=== PATIENT | female | born 1945 | race Caucasian/White ===

== ENCOUNTER 2019-02-17 13:14 | Inpatient (IN) | payer MEDICARE, OTHER ==
[~2019-02-17] VITALS: Ht 162.6 cm; Wt 63.9 kg
[2019-02-17 15:07] LABS: BASO % 0.3 % (0.0-1.0); EOS # 0.3 10^3/uL (0.0-0.50); EOS % 3.4 % (0.0-3.0); HEMATOCRIT 26.8 % (36.0-47.0); LYMPH # 1.9 10^3/uL (1.5-4.5); LYMPH % 25.2 % (24.0-44.0); MEAN CORPUSCULAR HGB CONC 33.6 g/dl (32.0-36.5); MEAN CORPUSCULAR VOLUME 95.4 fl (80.0-96.0); MONO # 0.7 10^3/uL (0.0-0.8); MONO % 9.4 % (0.0-5.0); NEUTROPHILS # 4.7 10^3/uL (1.8-7.7); NEUTROPHILS % 61.4 % (36.0-66.0); PLATELET COUNT, AUTOMATED 127 10^3/uL (150-450); RED BLOOD COUNT 2.81 10^6/uL (4.00-5.40); WHITE BLOOD COUNT 7.6 10^3/uL (4.0-10.0)
[2019-02-17 15:57] LABS: ALBUMIN 2.8 GM/DL (3.2-5.2); ALT/SGPT 28 U/L (12-78); BILIRUBIN,DIRECT < 0.1 MG/DL (0.0-0.2); BILIRUBIN,TOTAL 0.3 MG/DL (0.2-1.0); BLOOD UREA NITROGEN 11 MG/DL (7-18); CARBON DIOXIDE LEVEL 27 MEQ/L (21-32); CHLORIDE LEVEL 107 MEQ/L (98-107); CPK CREATINE PHOSPHOKINASE 254 U/L (26-192); CREATININE FOR GFR 0.82 MG/DL (0.55-1.30); GLOMERULAR FILTRATION RATE > 60.0 (>39); GLUCOSE, FASTING 132 MG/DL (70-100); POTASSIUM SERUM 3.3 MEQ/L (3.5-5.1); SODIUM LEVEL 141 MEQ/L (136-145); TOTAL PROTEIN 6.1 GM/DL (6.4-8.2); TROPONIN I 5.36 NG/ML (< 0.10)
--- NOTE | 2019-02-17 16:23 | REP ---
CT Head without contrast HISTORY: Infarction COMPARISON: None Areas of decreased attenuation are present in the periventricular white matter. This represents small-vessel ischemic disease. There is no intraparenchymal hemorrhage, acute infarct, mass or midline shift. The ventricular system and cortical sulci are dilated consistent with minimal volume loss. There is no extra cerebral collection. There is no fracture. The visualized sinuses are clear. IMPRESSION: 1. Small vessel ischemic disease. 2. Minimal volume loss. Electronically Signed by Yung Castro MD 02/17/2019 04:15 P
[2019-02-17] MEDS ORDERED: ASPI81TA85 PO (17:16)
[2019-02-17] MEDS ORDERED: NITR0.4S14 SL (17:16)
[2019-02-17] MEDS ORDERED: LISI10TA4 PO (17:16)
[2019-02-17] MEDS ORDERED: ATOR40TA75 PO (17:16)
[2019-02-17] MEDS ORDERED: EFFI10TA4 PO (17:16)
[2019-02-17] MEDS ORDERED: PANT40TA3 PO (17:16)
[2019-02-17] MEDS ORDERED: METO25TA4 PO (17:16)
[2019-02-17] MEDS ORDERED: PREM0.45 PO (17:16)
[2019-02-17] MEDS ORDERED: PROHANCE 279.3MG/ML 5ML VIAL (A9576) As Ordered ONE (17:38)
[2019-02-17] MEDS ORDERED: PROHANCE 279.3MG/ML 15ML VIAL (A9576) As Ordered ONE (17:38)
[2019-02-17] MEDS ORDERED: ACET-683 PO (19:39)
[2019-02-17] MEDS ORDERED: ESTR1CAP2 PO (19:43)
--- NOTE | 2019-02-17 21:26 | REPVR ---
EXAM: MR Angiography Neck Without and With Contrast EXAM DATE/TIME: 02/17/2019 7:48 PM CLINICAL HISTORY: 73 years old, female; Signs and symptoms; Headache and visual disturbance; Transient visual loss; Additional info: TIA TECHNIQUE: Imaging protocol: Magnetic resonance angiography images of the neck without and with intravenous contrast. 3D rendering: MIP reconstructed images were created and reviewed. Contrast material: PROHANCE; Contrast volume: 25 ml; Contrast route: IV; COMPARISON: No relevant prior studies available. FINDINGS: Right common carotid artery: Normal. No stenosis. No dissection or occlusion. Right internal carotid artery: Normal. Extracranial segment is patent with no stenosis. No dissection or occlusion. Right external carotid artery: Normal. No stenosis. No dissection or occlusion. Right vertebral artery: Normal. No stenosis. No dissection or occlusion. Left common carotid artery: Normal. No stenosis. No dissection or occlusion. Left internal carotid artery: Normal. Extracranial segment is patent with no stenosis. No dissection or occlusion. Left external carotid artery: Normal. No stenosis. No dissection or occlusion. Left vertebral artery: Normal. No stenosis. No dissection or occlusion. IMPRESSION: No carotid or vertebral artery stenosis. COMMENT: Reference per NASCET criteria for degree of stenosis: Mild: less than 50% stenosis. Moderate: 50-69% stenosis. Severe: 70-94% stenosis. Near occlusion: 95-99% stenosis. Electronically signed by: Brian Woods On 02/17/2019 21:26:19 PM
--- NOTE | 2019-02-17 21:31 | REPVR ---
EXAM: MR Head Without Contrast EXAM DATE/TIME: 02/17/2019 7:48 PM CLINICAL HISTORY: 73 years old, female; Signs and symptoms; Visual disturbance; Additional info: TIA TECHNIQUE: Imaging protocol: MR of the head without contrast. COMPARISON: CT Head without contrast 02/17/2019 3:50 PM FINDINGS: Brain: There is hyperintense signal in the care of your white matter with multiple additional small hyperintense foci scattered throughout the white matter. This is consistent with chronic microvascular disease. DWI images demonstrate several acute infarcts. The largest is in the right cerebellar hemisphere measuring 13 mm. There are small acute left cerebellar infarct measuring 5 and 3 mm. There is a 4 mm right occipital infarct. There is a 5 mm left basal ganglia infarct. There is a 4 mm left frontal white matter infarct and a 3 mm right frontal infarct. These are acute infarcts as confirmed on ADC. Gradient echo images demonstrate no evidence of hemorrhage. There is no extra-axial collection. There is no mass. There are no abnormal flow voids. Ventricles: Normal. No ventriculomegaly. Bones/joints: Unremarkable. Soft tissues: Normal. Sinuses: Normal as visualized. No acute sinusitis. Mastoid air cells: Normal as visualized. No mastoid effusion. Orbits: Unremarkable. IMPRESSION: There is a 13 mm acute right cerebellar hemisphere infarct. 6 additional small, 3-6 mm, cerebellar and cerebral acute infarcts as detailed above. This could indicate emboli. It may be secondary to an episode of hypotension or hypoxia. Electronically signed by: Brian Woods On 02/17/2019 21:31:36 PM
--- NOTE | 2019-02-17 21:31 | REPVR ---
EXAM: MR Angiogram Head Without Contrast, Arteries EXAM DATE/TIME: 02/17/2019 7:48 PM CLINICAL HISTORY: 73 years old, female; Signs and symptoms; Headache and visual disturbance; Transient visual loss; Additional info: TIA TECHNIQUE: Imaging protocol: MR angiogram head without contrast. Exam focused on the arteries. COMPARISON: CT Head without contrast 02/17/2019 3:50 PM FINDINGS: Right internal carotid artery: As seen on series 804 image 16, probable small, less than 2 mm, aneurysm of the cavernous segment of the right internal carotid artery. No stenosis. No supraclinoid aneurysm. Right anterior cerebral artery: Unremarkable. No occlusion or significant stenosis. No aneurysm. Right middle cerebral artery: Unremarkable. No occlusion or significant stenosis. No aneurysm. Right posterior cerebral artery: Unremarkable. No occlusion or significant stenosis. No aneurysm. Right vertebral artery: Unremarkable. No occlusion or significant stenosis. No aneurysm. Left internal carotid artery: As seen on series 803 image 15, small, 2 mm, posteriorly oriented aneurysm of the proximal cavernous segment of the left internal carotid artery. No stenosis. No supraclinoid aneurysm. Left anterior cerebral artery: Unremarkable. No occlusion or significant stenosis. No aneurysm. Left middle cerebral artery: Unremarkable. No occlusion or significant stenosis. No aneurysm. Left posterior cerebral artery: Unremarkable. No occlusion or significant stenosis. No aneurysm. Left vertebral artery: Unremarkable. No occlusion or significant stenosis. No aneurysm. Basilar artery: Unremarkable. No occlusion or significant stenosis. No aneurysm. IMPRESSION: 1. No intracranial stenosis or occlusion. 2. 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 No supraclinoid aneurysm. Electronically signed by: Brian Woods On 02/17/2019 21:31:06 PM
[2019-02-17] MEDS ORDERED: ACETAMINOPHEN TAB 650MG DOSE (2X325MG) PO ONE (22:00)
[2019-02-17 23:07] LABS: MB/CK RELATIVE INDEX 3.85 (< OR =4); TROPONIN I 5.33 NG/ML (< 0.10)
[2019-02-18] MEDS ORDERED: NITROGLYCERIN 0.4 MG SUBL TABLET SL PRN (00:15)
[2019-02-18] MEDS ORDERED: ACETAMINOPHEN 500 MG TAB PO PRN (00:15)
[2019-02-18 00:49] LABS: C REACTIVE PROTEIN QUANTITATIV 1.43 MG/DL (0.00-0.30)
[2019-02-18] MEDS: ATORVASTATIN 20 MG TAB PO SCH ×2 (01:14→21:48)
[2019-02-18] MEDS: METOPROLOL TART 12.5 MG PER 1/2 TAB PO SCH ×3 (01:15→21:50)
[2019-02-18 01:21] LABS: INR 1.01; PROTHROMBIN TIME 13.4 SECONDS (12.1-14.4)
[2019-02-18 01:22] LABS: PARTIAL THROMBOPLASTIN TIME 30.9 SECONDS (25.4-37.6)
[2019-02-18 01:25] VITALS: BP 174/79
[2019-02-18] MEDS: NS 1,000 ML IV SCH ×2 (03:00→13:35)
[2019-02-18] MEDS ORDERED: POTASSIUM CHLORIDE 10 MEQ SR TABLET PO ONE (04:00)
--- NOTE | 2019-02-18 04:03 | HPEPDOC ---
General Date of Admission February 17, 2019 at 22:40 Date of Service: February 18, 2019 Attending Physician: SAW PETERS MD Chief Complaint The patient is a 73-year-old female admitted with a reason for visit of Embolic Cerebral Infarction. Source: Patient, Family, Old records Exam Limitations: Clinical conditions History of Present Illness Ms. Gallego is a 73-year-old female who presents to [facility] Emergency Department with visual disturbance. Patient is accompanied by her and daughter. Patient states that she had been driving as a passenger in the vehicle with her this morning at 10AM to attend his cardiology appointment when she developed difficulties seeing out her right eye. She states that she was having some abnormal visual movements in her right sided peripheral vision and then completely lost vision in her right eye. She also developed difficulty understanding what people were saying to her and difficulty in articulating herself. Patient states that she does have a history of visual disturbance which is usually accompanied by an intense migraine headache; however, this visual disturbance was not accompanied by a headache. Family state that they did not notice facial asymmetry and her daughter had her extend her arms out in front of her and did not notice any abnormalities. The patient herself does not describe any lateralizing weakness and has not fallen. She does, however, describe feeling hopeless. Her daughter checked her blood pressure when she got home and it was initially 118/60s with it decreasing to 105/56. By noon, patient states that her visual loss had completely resolved. She reports having a sore throat overnight and having previously had a cough. She describes diffuse body aches, but attributes that to being on the ED stretcher for many hours today. Further admits to elbow pain, but no other joint pain. No fevers, night sweats, or chills. No chest pain or shortness of breath. Of note, patient experienced an acute inferiolateral STEMI on 01/18/2019. She was evaluated at [facility]. She received 2 drug-eluting stents in the right coronary artery, 2 drug-eluting stents in the left circumflex artery, and stenting of the left main artery. 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 Patient was started on ASA, Atorvastatin, Prasugrel, Lisinopril, Metoprolol, Nitroglycerin, and Pantoprazole. Patient presented to [facility] ED on 01/21/2019 for right sided headache with a "fluttering" in her right eye. A head CT was ordered and did not reveal any abnormalities. It was recommended that patient follow up with her primary care provider. Patient had a follow up appointment on 01/25/2019 with her snowboard designer in [place]. A follow cardiac catheterization was scheduled for a week following her appointment, but was cancelled. It was rescheduled and she underwent a cardiac catheterization on 02/15/2019 via her right femoral vein. No abnormalities noted, per patient. However, she developed crushing chest pain and another cardiac catheterization was performed via her left femoral vein. Five additional stents were placed at that time. Patient established with her primary care provider, Dr. Yung Whelan, on 02/07/2019. In that encounter note it states that patient had presented to the [facility] the week before for a productive cough and was prescribed Cefdinir for bronchitis. Follow up appointment scheduled for 02/28/2019. Emergency Department evaluation obtained imaging, including a head CT which was unremarkable, carotid MRI and brain MRA which were unremarkable; however, the brain MRI revealed several acute infarctions, the largest is in the right cerebellar hemisphere measuring 13 mm. There are small acute left cerebellar infarct measuring 5 and 3 mm. There is a 4 mm right occipital infarct. There is a 5 mm left basal ganglia infarct. There is a 4 mm left frontal white matter infarct and a 3 mm right frontal infarct. Laboratory evaluation revealed the following: K 3.3, lactic acid 1.4, and a troponin 5.36. Hospitalist service was consulted and patient was admitted for further medical management. Home Medications Scheduled Aspirin (Aspir 81) 81 Mg Tablet.dr, 81 MG PO DAILY, (Reported) Atorvastatin Calcium (Atorvastatin Calcium) 40 Mg Tablet, 40 MG PO QHS, (Reported) Lisinopril (Lisinopril) 10 Mg Tablet, 10 MG PO DAILY, (Reported) Metoprolol Tartrate (Metoprolol Tartrate) 25 Mg Tablet, 12.5 MG PO BID, (Reported) Pantoprazole Sodium (Pantoprazole Sodium) 40 Mg Tablet.dr, 40 MG PO DAILY, (Reported) Prasugrel HCl (Effient) 10 Mg Tablet, 10 MG PO DAILY, (Reported) Scheduled PRN Acetaminophen (Acetaminophen) 500 Mg Tablet, 1,000 MG PO Q6H PRN for PAIN, (Reported) Nitroglycerin (Nitroglycerin) 0.4 Mg Tab.subl, 0.4 MG SL Q5MP PRN for CHEST PAIN, (Reported) Soy Isofla/Blk Cohosh/Mag Bark (Estroven 155 mg Capsule) 155 Mg Capsule, 1 CAP PO DAILY PRN for MOOD, (Reported) Allergies Coded Allergies: Penicillins (Verified Allergy, Unknown, 02/17/19) Past Medical History Medical History 1. CAD s/p STEMI s/p stenting 2. HTN 3. DLP 4. Elevated glucose 5. Vascular headaches Surgical History 1. Cardiac stenting x 11 2. Bladder lift 3. Skin lesion excision 4. Right ring finger surgery 5. Colonoscopy Family History Father: , 92, heart disease, Alzheimer's Mother: , 89, heart disease Siblings - Brothers: x5, alive, [place], cardiac stenting, CVA Social History * Smoker: former Smoker (during her teenage years) Alcohol: Denies Drugs: denies Patient lives independently with her of 50 years. They have one adult son and one adult daughter. She has two step-children from her 's prior relationship. She used to smoke in her teenage years. Denies EtOH. Does not use illicit drugs. Previously worked with emotionally disable individuals for 20 years. A-FIB/CHADSVASC A-FIB History Current/History of A-Fib/PAF?: No Review of Systems Constitutional: Denies: Chills, Fever, Night Sweats, Weakness, Weight Loss Eyes: Reports: Vision change (right sided peripheral vision loss progressing to total vision loss which has since completely recovered) ENT: Reports: Sore Throat; Denies: Head Aches, Dysphagia, Sinus Congestion, Post Nasal Drip, Epistaxis Skin: Denies: Rash, Lesions Pulmonary: Reports: Cough (which has greatly improved); Denies: Dyspnea, Pleuritic Chest Pain Cardiovascular: Denies: Chest Pain, Palpitations, Orthopnea, Paroxysmal Noc. Dyspnea, Edema, Lt Headedness Gastrointestinal: Denies: Nausea, Vomiting, Abdominal Pain, Diarrhea, Constipation, Melena Genitourinary: Denies: Dysuria, Frequency, Incontinence, Hematuria Hematologic: Denies: Bruising Musculoskeletal: Denies: Neck Pain, Back Pain, Joint Pain, Muscle Pain Neurological: Denies: Weakness, Numbness Physical Examination General Exam: Positive: Alert, Cooperative, No Acute Distress Eye Exam: Positive: PERRLA, Conjunctiva & lids normal, EOMI, Other Eye Symptoms (no pain with eye movements); Negative: Sclera icteric, Ptosis ENT Exam: Positive: Atraumatic, Mucous membr. moist/pink, Pharynx Normal, Tongue Midline, Nares Patent; Negative: Pharyngeal Edema Neck Exam: Positive: Supple, +2 carotid pulse wo bruit; Negative: JVD, thyromegaly, Lymphadenopathy Chest Exam: Positive: Clear to auscultation, Normal air movement; Negative: Rales, Rhonchi, Wheezing, Diminished Heart Exam: Positive: Rate Normal, Bradycardic, Regular Rhythm, Normal S1, Normal S2, Murmurs (grade II/ systolic murmur appreciated most prominently over the 2nd-4th intercostal space) Telemetry: Positive: Bradycardia Abdomen Exam: Positive: Normal bowel sounds, Soft, Other (significant ecchymoses noted in B/L groin); Negative: Tenderness, Hepatospenomegaly, Mass, Hernia Extremity Exam: Negative: Clubbing, Cyanosis, Edema, Normal pulses (bradycardic), Tenderness, Swelling Skin Exam: Negative: Rash, Breakdown, Lesion Neuro Exam: Positive: Cranial Nerves 3-12 NL, Other (NIHSS = 2); Negative: Normal Speech (dysarthric speech) Psych Exam: Positive: Memory Intact, Oriented x 3 Other physical findings 1. CT head without contrast - Small vessel ischemic disease. Minimal volume loss 2. MRI carotids without following by with contrast - No carotid or vertebral artery stenosis. 3. MRA brain without contrast - No intracranial stenosis or occlusion. 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 No supraclinoid aneurysm. 4. MRI brain without contrast - Several acute infarctions, the largest is in the right cerebellar hemisphere measuring 13 mm. There are small acute left cerebellar infarct measuring 5 and 3 mm. There is a 4 mm right occipital infarct. There is a 5 mm left basal ganglia infarct. There is a 4 mm left frontal white matter infarct and a 3 mm right frontal infarct. Vital Signs Vital Signs Date Time Temp Pulse Resp B/P (MAP) Pulse Ox O2 Delivery O2 Flow Rate FiO2 02/18/19 01:25 97.6 62 16 174/79 (110) 99 02/18/19 01:15 Room Air Height (in): 64 Weight (kg): 63.9 BMI (kg): 24.2 Laboratory Data Labs 24H Laboratory Tests 2 02/17/19 14:37: Immature Granulocyte % (Auto) 0.3, White Blood Count 7.6, Red Blood Count 2.81L, Hemoglobin 9.0L, Hematocrit 26.8L, Mean Corpuscular Volume 95.4, Mean Corpuscular Hemoglobin 32.0, Mean Corpuscular Hemoglobin Concent 33.6, Red Cell Distribution Width 12.9, Platelet Count 127L, Neutrophils (%) (Auto) 61.4, Lymphocytes (%) (Auto) 25.2, Monocytes (%) (Auto) 9.4H, Eosinophils (%) (Auto) 3.4H, Basophils (%) (Auto) 0.3, Neutrophils # (Auto) 4.7, Lymphocytes # (Auto) 1.9, Monocytes # (Auto) 0.7, Eosinophils # (Auto) 0.3, Basophils # (Auto) 0.0, Nucleated Red Blood Cells % (auto) 0.0, Urine Color YELLOW, Urine Appearance CLEAR, Urine pH 5.0, Urine Specific [place] 1.017, Urine Protein NEGATIVE, Urine Glucose (UA) NEGATIVE, Urine Ketones NEGATIVE, Urine Blood NEGATIVE, Urine Nitrite NEGATIVE, Urine Bilirubin NEGATIVE, Urine Urobilinogen 2.0H, Urine Leukocyte Esterase NEGATIVE, Urine WBC (Auto) 2, Urine RBC (Auto) 0, Urine Hyaline Casts (Auto) 0, Urine Bacteria (Auto) NEGATIVE, Urine Squamous Epi thelial Cells 0, Urine Transitional Epithelial Cells <1, Urine Mucus (Auto) SMALL, Urine Sperm (Auto) , Anion Gap 7L, Glomerular Filtration Rate > 60.0, Lactic Acid Level 1.4, Calcium Level 8.0L, Aspartate Amino Transf (AST/SGOT) 70H, Alanine Aminotransferase (ALT/SGPT) 28, Alkaline Phosphatase 56, Total Bilirubin 0.3, Direct Bilirubin < 0.1, Total Creatine Kinase 254H, Creatine Kinase MB 12.0H, Creatine Kinase MB Relative Index 4.80H, Troponin I 5.36*H, Total Protein 6.1L, Albumin 2.8L, Albumin/Globulin Ratio 0.85L, Thyroid Stimulating Hormone (TSH) 1.650 02/17/19 22:38: Total Creatine Kinase 205H, Creatine Kinase MB 8.0H, Creatine Kinase MB Relative Index 3.85, Troponin I 5.33*H, C-Reactive Protein, Quantitative 1.43H 02/18/19 00:43: Erythrocyte Sedimentation Rate 43H, Prothrombin Time 13.4, Prothromb Time International Ratio 1.01, Activated Partial Thromboplast Time 30.9 CBC/BMP Laboratory Tests 02/17/19 14:37 Red Blood Count 2.81 L, Mean Corpuscular Volume 95.4, Mean Corpuscular Hemoglobin 32.0, Mean Corpuscular Hemoglobin Concent 33.6, Red Cell Distribution Width 12.9, Neutrophils (%) (Auto) 61.4, Lymphocytes (%) (Auto) 25.2, Monocytes (%) (Auto) 9.4 H, Eosinophils (%) (Auto) 3.4 H, Basophils (%) (Auto) 0.3, Eliud trophils # (Auto) 4.7, Lymphocytes # (Auto) 1.9, Monocytes # (Auto) 0.7, Eosinophils # (Auto) 0.3, Basophils # (Auto) 0.0 Microbiology Microbiology 02/17/19 Blood Culture, Received Pending Plan / VTE VTE Prophylaxis Ordered?: Yes (TEDs, sequentials) Plan Plan 1. 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 Neurology has been consulted. No anticoagulation recommended at this time due to recent cardiac stenting and increased risk of bleeding. Permissive HTN so will hold Lisinopril. Ordered PT/OT/ST. NPO for NAYLA. Neurological checks Q8H. Obtaining hypercoagulable work-up. No A-Fib noted on EKGs and no history of A-Fib. 2. CAD s/p STEMI s/p cardiac stenting - Continue ASA 81mg, Prasugrel, Atorvastatin, Metoprolol, Nitroglycerin, and Protonix. No anticoagulation indicated at this time due to recent stenting and increased risk of bleeding. Cardiac markers elevated; however, with recent stenting on 02/15/2019 this is to be expected. Prior troponin on 01/19/2019 was 12.5. 3. Hypokalemia - Supplementation provided. 4. Anemia and thrombocytopenia - Monitor with daily labs. Disposition Admit: Med/Surg Anticipated hospitalization: 2 nights IVF: Initiate (NS @ 75 mLs/hr) Diet: Make NPO (NAYLA) Activity: Continue Current (OOB to chair) Therapy: PT, OT, Speech Diagnostics: Check Labs, Repeat Labs in AM, Obtain Cultures (blood x1), NAYLA Anticipated Discharge: Home GUTIERREZ CALIX DO February 18, 2019 03:27
[2019-02-18 05:58] LABS: HEMATOCRIT 26.1 % (36.0-47.0); HEMOGLOBIN 8.6 g/dl (12.0-15.5); MEAN CORPUSCULAR HEMOGLOBIN 31.6 pg (27.0-33.0); PLATELET COUNT, AUTOMATED 121 10^3/uL (150-450); RED BLOOD COUNT 2.72 10^6/uL (4.00-5.40); WHITE BLOOD COUNT 6.6 10^3/uL (4.0-10.0)
[2019-02-18 06:00] VITALS: BP 143/67
--- NOTE | 2019-02-18 06:02 | ECGEPIP ---
[facility] - ED Test Date: 2019-02-17 Pat Name: DANNY OWENS Department: Room: - Gender: Female Health Policy Nurse: CT : 1945 Requested By: AMADO Pierre Order Number: [id number] Reading MD: Juan Pedraza Measurements Intervals [place] Rate: 57 P: 63 NE: 205 QRS: 23 QRSD: 88 T: QT: 478 QTc: 468 Interpretive Statements SINUS BRADYCARDIA LEFT VENTRICULAR HYPERTROPHY AND ST-T CHANGE PRIOR INFERIOR INFARCT SIMILAR TO 02/15/19 @ [facility] OBTAINED VIA [employer] Electronically Signed on 02-18-2019 6:02:29 EDT by Juan Pedraza
[2019-02-18 06:33] LABS: BLOOD UREA NITROGEN 8 MG/DL (7-18); CALCIUM LEVEL 8.2 MG/DL (8.8-10.2); CARBON DIOXIDE LEVEL 30 MEQ/L (21-32); CHLORIDE LEVEL 110 MEQ/L (98-107); CPK CREATINE PHOSPHOKINASE 164 U/L (26-192); CREATININE FOR GFR 0.64 MG/DL (0.55-1.30); GLOMERULAR FILTRATION RATE > 60.0 (>39); GLUCOSE, FASTING 91 MG/DL (70-100); MB/CK RELATIVE INDEX 3.17 (< OR =4); SODIUM LEVEL 144 MEQ/L (136-145); TROPONIN I 5.96 NG/ML (< 0.10)
[2019-02-18] MEDS: PANTOPRAZOLE 40MG TAB (PROTONIX) PO SCH (08:56)
[2019-02-18] MEDS: ASPIRIN 81 MG ENTERIC TAB PO SCH (08:58)
--- NOTE | 2019-02-18 09:17 | NUR ---
Pt swallow fxn is wnl. Recommend regular solids, thin liquids. No dysphagia tx. Please contact BREWING DIRECTOR w/ any change in swallowing status or any other concerns. Addendum: 02/18/19 at 0917 by SHADY GIBSON [facility] SP Amended: Links added.
--- NOTE | 2019-02-18 12:20 | IPNPDOC ---
Subjective Date Seen The patient was seen on 02/18/19. Subjective Chief Complaint/HPI Patient is comfortable off was no new complaints. No symptoms at this time. No dysarthria General: Denies: ROS Unobtainable, Chills, Night Sweats, Fatigue, Malaise, Normal Appetite, Other Symptoms Constitutional: Denies: Chills, Fever, Malaise, Night Sweats, Weakness, Fatigue, Weight Loss, Lethargy, Other Eyes: Denies: Pain, Vision change, Conjunctivae inflammation, Eyelid inf lammation, Redness, Other ENT: Denies: Head Aches, Ear Pain, Dysphagia, Sinus Congestion, Post Nasal Drip, Sore Throat, Epistaxis, Other Symptoms Skin: Denies: Rash, Lesions, Jaundice, Bruising, Itching, Dry, Breakdown, Nail Changes, Other Pulmonary: Denies: Dyspnea, Cough, Pleuritic Chest Pain, Other Symptoms Cardiovascular: Denies: Chest Pain, Palpitations, Orthopnea, Paroxysmal Noc. Dyspnea, Edema, Lt Headedness, Other Symptoms Gastrointestinal: Denies: Nausea, Vomiting, Abdominal Pain, Diarrhea, Constipation, Melena, Hematochezia, Other Symptoms Genitourinary: Denies: Dysuria, Frequency, Incontinence, Hematuria, Retention, Other Symptoms Hematologic: Denies: Bruising, Bleeding Excessively, Petecchia, Purpura, Enlarged Lymph Nodes, Other Hematologic Endocrine: Denies: Polydipsia, Polyphagia, Polyuria, Heat Intolerance, Cold Intolerance, Other Endocrine Sx Musculoskeletal: Denies: Neck Pain, Back Pain, Shoulder Pain, Arm Pain, Hand Pain, Leg Pain, Foot Pain, Joint Pain, Muscle Pain, Spasms, Other Symptoms Neurological: Denies: Weakness, Numbness, Incoordination, Change in speech, Confusion, Seizures, Other Symptoms Psych: Denies: Mood Normal, Anxiety, Depression, Memory Issues, Thoughts of Self Harm, Anger, Thoughts of Harming Other, Other Psych Objective Physical Examination General Exam: Positive: Alert, Cooperative, No Acute Distress Eye Exam: Positive: PERRLA, Conjunctiva & lids normal, EOMI, Other Eye Symptoms (no pain with eye movements); Negative: Sclera icteric, Ptosis ENT Exam: Positive: Atraumatic, Mucous membr. moist/pink, Pharynx Normal, Tongue Midline, Nares Patent; Negative: Pharyngeal Edema Neck Exam: Positive: Supple, +2 carotid pulse wo bruit; Negative: JVD, thyromegaly, Lymphadenopathy Chest Exam: Positive: Clear to auscultation, Normal air movement; Negative: Rales, Rhonchi, Wheezing, Diminished Heart Exam: Positive: Rate Normal, Bradycardic, Regular Rhythm, Normal S1, Normal S2, Murmurs (grade II/ systolic murmur appreciated most prominently over the 2nd-4th intercostal space) Telemetry: Positive: Bradycardia Abdomen Exam: Positive: Normal bowel sounds, Soft, Other (significant ecchymoses noted in B/L groin); Negative: Tenderness, Hepatospenomegaly, Mass, Hernia Extremity Exam: Negative: Clubbing, Cyanosis, Edema, Normal pulses (bradycardic), Tenderness, Swelling Skin Exam: Negative: Rash, Breakdown, Lesion Neuro Exam: Positive: Normal Speech ( ) Psych Exam: Positive: Memory Intact, Oriented x 3 Assessment /Plan Problems (1) Embolic cerebral infarction Problem Text: Neuro consult is pending Patient's symptom has completely resolved On dual antiplatelet therapy As per neurology recommendation (2) CAD (coronary artery disease) Problem Text: Status post stent placement recently Edging for NAYLA today to rule out intraventricular thrombus Further management depends on the NAYLA Patient follows up with Dr. reynoso Continue home meds Plan/VTE VTE Prophylaxis Ordered?: Yes (TEDs, sequentials) Plan IVF: Initiate (NS @ 75 mLs/hr) Diet: Make NPO (NAYLA) Activity: Continue Current (OOB to chair) Therapy: PT, OT, Speech Diagnostics: Check Labs, Repeat Labs in AM, Obtain Cultures (blood x1), NAYLA Anticipated Discharge: Home VS, I&O, 24H, [place] Vital Signs/I&O Vital Signs Date Time Temp Pulse Resp B/P (MAP) Pulse Ox O2 Delivery O2 Flow Rate FiO2 02/18/19 08:57 67 160/72 02/18/19 06:00 97.9 16 97 02/18/19 01:15 Room Air I&O- Last 24 Hours up to 6 AM 02/18/19 06:00 Intake Total 355 ml Output Total 750 ml Balance -395 ml Laboratory Data 24H LABS Laboratory Tests 2 02/17/19 14:37: Immature Granulocyte % (Auto) 0.3, White Blood Count 7.6, Red Blood Count 2.81L, Hemoglobin 9.0L, Hematocrit 26.8L, Mean Corpuscular Volume 95.4, Mean Corpuscular Hemoglobin 32.0, Mean Corpuscular Hemoglobin Concent 33.6, Red Cell Distribution Width 12.9, Platelet Count 127L, Neutrophils (%) (Auto) 61.4, Lymphocytes (%) (Auto) 25.2, Monocytes (%) (Auto) 9.4H, Eosinophils (%) (Auto) 3.4H, Basophils (%) (Auto) 0.3, Neutrophils # (Auto) 4.7, Lymphocytes # (Auto) 1.9, Monocytes # (Auto) 0.7, Eosinophils # (Auto) 0.3, Basophils # (Auto) 0.0, Nucleated Red Blood Cells % (auto) 0.0, Urine Color YELLOW, Urine Appearance CLEAR, Urine pH 5.0, Urine Specific [place] 1.017, Urine Protein NEGATIVE, Urine Glucose (UA) NEGATIVE, Urine Ketones NEGATIVE, Urine Blood NEGATIVE, Urine Nitrite NEGATIVE, Urine Bilirubin NEGATIVE, Urine Urobilinogen 2.0H, Urine Leukocyte Esterase NEGATIVE, Urine WBC (Auto) 2, Urine RBC (Auto) 0, Urine Hy gustavo Casts (Auto) 0, Urine Bacteria (Auto) NEGATIVE, Urine Squamous Epithelial Cells 0, Urine Transitional Epithelial Cells <1, Urine Mucus (Auto) SMALL, Urine Sperm (Auto) , Anion Gap 7L, Glomerular Filtration Rate > 60.0, Lactic Acid Level 1.4, Calcium Level 8.0L, Aspartate Amino Transf (AST/SGOT) 70H, Alanine Aminotransferase (ALT/SGPT) 28, Alkaline Phosphatase 56, Total Bilirubin 0.3, Direct Bilirubin < 0.1, Total Creatine Kinase 254H, Creatine Kinase MB 12.0H, Creatine Kinase MB Relative Index 4.80H, Troponin I 5.36*H, Total Protein 6.1L, Albumin 2.8L, Albumin/Globulin Ratio 0.85L, Thyroid Stimulating Hormone (TSH) 1.650 02/17/19 22:38: Total Creatine Kinase 205H, Creatine Kinase MB 8.0H, Creatine Kinase MB Relative Index 3.85, Troponin I 5.33*H, C-Reactive Protein, Quantitative 1.43H 02/18/19 00:43: Erythrocyte Sedimentation Rate 43H, Prothrombin Time 13.4, Prothromb Time International Ratio 1.01, Activated Partial Thromboplast Time 30.9 02/18/19 05:29: Nucleated Red Blood Cells % (auto) 0.0, Anion Gap 4L, Glomerular Filtration Rate > 60.0, Calcium Level 8.2L, Total Creatine Kinase 164, Creatine Kinase MB 5.0H, Creatine Kinase MB Relative Index 3.17, Troponin I 5.96*H, Blood Urea Nitrogen 8, Creatinine 0.64, Sodium Level 144, Potassium Level 4.0#, Chloride Level 110H, Carbon Dioxide Level 30 CBC/BMP Laboratory Tests 02/17/19 14:37 Red Blood Count 2.81 L, Mean Corpuscular Volume 95.4, Mean Corpuscular Hemoglobin 32.0, Mean Corpuscular Hemoglobin Concent 33.6, Red Cell Distribution Width 12.9, Neutrophils (%) (Auto) 61.4, Lymphocytes (%) (Auto) 25.2, Monocytes (%) (Auto) 9.4 H, Eosinophils (%) (Auto) 3.4 H, Basophils (%) (Auto) 0.3, Neutrophils # (Auto) 4.7, Lymphocytes # (Auto) 1.9, Monocytes # (Auto) 0.7, Eosinophils # (Auto) 0.3, Basophils # (Auto) 0.0 02/18/19 05:29 Red Blood Count 2.72 L, Mean Corpuscular Volume 96.0, Mean Corpuscular Hemoglobin 31.6, Mean Corpuscular Hemoglobin Concent 33.0, Red Cell Distribution Width 13.0, Calcium Level 8.2 L, Total Creatine Kinase 164 Microbiology Microbiology 02/17/19 Blood Culture, Received Pending LUIGI ABDALLA MD February 18, 2019 12:20
[2019-02-18] MEDS: PRASUGREL 10 MG PO SCH (13:38)
[2019-02-18] MEDS ORDERED: LIDOCAINE 2% INJ 100 MG/5 ML SDV (FOR ANES.) As Ordered ONE (14:33)
[2019-02-18] MEDS ORDERED: LIDOCAINE VISCOUS 2% SOLN 15ML UDC As Ordered ONE (14:35)
[2019-02-18] MEDS ORDERED: ePHEDrine SULFATE 25 MG/5 ML(5MG/ML) SYRINGE As Ordered ONE (14:59)
[2019-02-18] MEDS ORDERED: PROPOFOL 200 MG/20 ML VIAL As Ordered ONE (14:59)
[2019-02-18] MEDS ORDERED: ONDANSETRON 4MG/2ML VIAL (J2405) As Ordered ONE (14:59)
[2019-02-18] MEDS ORDERED: fentaNYL 100 MCG/2 ML INJECTION (J3010) As Ordered ONE (14:59)
--- NOTE | 2019-02-18 16:45 | T-ECHO ---
DATE OF PROCEDURE: 02/18/2019 REFERRING PHYSICIAN: Janel Alicia MD INDICATION: Cryptogenic stroke, suspected to be embolic stroke. PROCEDURE: Transesophageal echocardiogram with bubble study. SURGEON: Obie Jimenez MD HEAD GOLF PROFESSIONAL: None. CONSCIOUS SEDATION: Monitored anesthetic care per AIRLINE RESERVATIONIST. (propofol). COMPLICATIONS: None. PROCEDURE DESCRIPTION: Rhythm was sinus. Esophageal intubation was accomplished by Dr. Jimenez without difficulty using a Ahn 3D transesophageal echocardiogram probe. The left and right ventricles appeared normal in size and systolic function. Left ventricular ejection fraction (LVEF) was 65% by visual estimate. Atrial septum was intact anatomically by color flow Doppler. The appearance of the intraatrial septum was somewhat suspicious for presence of patent foramen ovale, however, no color flow was seen across it. Bubble study was performed using 1 mL of propofol with 8 mL of normal saline and 1 mL of air which was agitated back and forth between to 10 mL syringes between two three-way stopcocks. No bubbles were seen shunting across the atrial septum and no bubbles were seen appearing early on in the right atrium or right ventricle. No bubbles were seen appearing in the entry to the pulmonary veins into the left atrium. Unfortunately, the patient's level of sedation was such that she was not able to provide Valsalva maneuver release because the sedation was too deep for her to be able to do that. No masses or thrombi were seen within the atria or their appendages. Type 1 spontaneous echo contrast was seen in the right atrium. Aortic valve was three-cuspid and showed mild-moderate focal thickening and focal cusp deposits. Very mild central aortic regurgitation was present. Mild prolapse of the anterior and posterior mitral leaflets. Moderate mitral regurgitation. The left atrium appeared to be at least mildly enlarged by visual assessment. No flail segments involving the mitral leaflets. Tricuspid and pulmonic valves were normal. No pulmonic regurgitation was seen. Mild tricuspid regurgitation was present. No pericardial effusion. The distal aortic arch and descending thoracic aorta had patchy segmental regions of atheroma with some regions having severe atheroma and in one location there was a mobile component to the atheroma. CONCLUSIONS: 1. 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 2. Negative bubble study for identification of right heart to left heart intracardiac or extracardiac shunting. This assessment was limited by the patient's inability to perform Valsalva maneuver release due to the level of IV sedation. 3. Normal left ventricle size, systolic function and regional wall motion. LVEF 65% by visual estimate. 4. 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 5. Mild-moderate aortic valve sclerosis. No aortic stenosis. Very mild aortic regurgitation.
[2019-02-18] MEDS ORDERED: ASPIRIN 81 MG ENTERIC TAB PO ONE (19:00)
[2019-02-18 19:57] VITALS: BP 162/90
--- NOTE | 2019-02-18 20:29 | REP ---
Clinical: Chest pain . Comparison: None . Findings: The mediastinum and cardiac silhouette are stable and within normal limits for portable technique. The lung barcenas are clear without acute consolidation, effusion, or pneumothorax. Skeletal structures are intact. Impression: No acute cardiopulmonary process appreciated. Electronically Signed by Tomás Leone MD 02/18/2019 08:20 P
[2019-02-18] MEDS ORDERED: DOCUSATE SODIUM 100 MG CAP PO PRN (21:15)
[2019-02-18 22:00] VITALS: BP 141/60
[2019-02-19] MEDS: NS 1,000 ML IV SCH (03:02)
[2019-02-19 05:27] LABS: HEMATOCRIT 26.3 % (36.0-47.0); HEMOGLOBIN 8.6 g/dl (12.0-15.5); MEAN CORPUSCULAR HEMOGLOBIN 31.4 pg (27.0-33.0); MEAN CORPUSCULAR HGB CONC 32.7 g/dl (32.0-36.5); PLATELET COUNT, AUTOMATED 125 10^3/uL (150-450); RED BLOOD COUNT 2.74 10^6/uL (4.00-5.40); WHITE BLOOD COUNT 7.2 10^3/uL (4.0-10.0)
[2019-02-19 05:55] LABS: BLOOD UREA NITROGEN 9 MG/DL (7-18); CALCIUM LEVEL 8.1 MG/DL (8.8-10.2); CARBON DIOXIDE LEVEL 28 MEQ/L (21-32); CHLORIDE LEVEL 111 MEQ/L (98-107); CREATININE FOR GFR 0.58 MG/DL (0.55-1.30); GLOMERULAR FILTRATION RATE > 60.0 (>39); GLUCOSE, FASTING 100 MG/DL (70-100); POTASSIUM SERUM 3.7 MEQ/L (3.5-5.1); SODIUM LEVEL 143 MEQ/L (136-145); TROPONIN I 4.77 NG/ML (< 0.10)
[2019-02-19 06:00] VITALS: BP 140/79
[2019-02-19 07:46] VITALS: BP 147/72
--- NOTE | 2019-02-19 09:45 | IPNPDOC ---
Subjective Date Seen The patient was seen on 02/19/19. Subjective Chief Complaint/HPI Patient had just been last night which is resolved now and is comfortable and offers no complaints at the present time, patient is medically stable General: Denies: ROS Unobtainable, Chills, Night Sweats, Fatigue, Malaise, N ormal Appetite, Other Symptoms Constitutional: Denies: Chills, Fever, Malaise, Night Sweats, Weakness, Fatigue, Weight Loss, Lethargy, Other Eyes: Denies: Pain, Vision change, Conjunctivae inflammation, Eyelid inflammation, Redness, Other ENT: Denies: Head Aches, Ear Pain, Dysphagia, Sinus Congestion, Post Nasal Drip, Sore Throat, Epistaxis, Other Symptoms Skin: Denies: Rash, Lesions, Jaundice, Bruising, Itching, Dry, Breakdown, Nail Changes, Other Pulmonary: Denies: Dyspnea, Cough, Pleuritic Chest Pain, Other Symptoms Cardiovascular: Denies: Chest Pain, Palpitations, Orthopnea, Paroxysmal Noc. Dyspnea, Edema, Lt Headedness, Other Symptoms Gastrointestinal: Denies: Nausea, Vomiting, Abdominal Pain, Diarrhea, Constipation, Melena, Hematochezia, Other Symptoms Genitourinary: Denies: Dysuria, Frequency, Incontinence, Hematuria, Retention, Other Symptoms Hematologic: Denies: Bruising, Bleeding Excessively, Petecchia, Purpura, Enlarged Lymph Nodes, Other Hematologic Endocrine: Denies: Polydipsia, Polyphagia, Polyuria, Heat Intolerance, Cold Intolerance, Other Endocrine Sx Musculoskeletal: Denies: Neck Pain, Back Pain, Shoulder Pain, Arm Pain, Hand Pain, Leg Pain, Foot Pain, Joint Pain, Muscle Pain, Spasms, Other Symptoms Neurological: Denies: Weakness, Numbness, Incoordination, Change in speech, Confusion, Seizures, Other Symptoms Psych: Denies: Mood Normal, Anxiety, Depression, Memory Issues, Thoughts of Self Harm, Anger, Thoughts of Harming Other, Other Psych Objective Physical Examination General Exam: Positive: Alert, Cooperative, No Acute Distress Eye Exam: Positive: PERRLA, Conjunctiva & lids normal, EOMI, Other Eye Symptoms (no pain with eye movements); Negative: Sclera icteric, Ptosis ENT Exam: Positive: Atraumatic, Mucous membr. moist/pink, Pharynx Normal, Tongue Midline, Nares Patent; Negative: Pharyngeal Edema Neck Exam: Positive: Supple, +2 carotid pulse wo bruit; Negative: JVD, thyromegaly, Lymphadenopathy Chest Exam: Positive: Clear to auscultation, Normal air movement; Negative: Rales, Rhonchi, Wheezing, Diminished Heart Exam: Positive: Rate Normal, Bradycardic, Regular Rhythm, Normal S1, Normal S2, Murmurs (grade II/ systolic murmur appreciated most prominently over the 2nd-4th intercostal space) Telemetry: Positive: Bradycardia Abdomen Exam: Positive: Normal bowel sounds, Soft, Other (significant ecchymoses noted in B/L groin); Negative: Tenderness, Hepatospenomegaly, Mass, Hernia Extremity Exam: Negative: Clubbing, Cyanosis, Edema, Normal pulses (bradycardic), Tenderness, Swelling Skin Exam: Negative: Rash, Breakdown, Lesion Neuro Exam: Positive: Normal Speech ( ) Psych Exam: Positive: Memory Intact, Oriented x 3 Assessment /Plan Problems (1) Embolic cerebral infarction Problem Text: Neuro consult is pending Patient's symptom has completely resolved On dual antiplatelet therapy Neurology note pending . We'll continue observing. till Patient is cleared by neuro and cardiac for di karen (2) CAD (coronary artery disease) Problem Text: His pain resolved with the sublingual nitroglycerin. EKG and troponins essentially no change Status post stent placement recently NAYLA shows multiple atheromas and distal aorta. I will call cardiology and discuss with them Patient is already on Lipitor 40 mg by mouth daily Continue home meds Plan/VTE VTE Prophylaxis Ordered?: Yes (TEDs, sequentials) Plan IVF: Initiate (NS @ 75 mLs/hr) Diet: Make NPO (NAYLA) Activity: Continue Current (OOB to chair) Therapy: PT, OT, Speech Diagnostics: Check Labs, Repeat Labs in AM, Obtain Cultures (blood x1), NAYLA Anticipated Discharge: Home VS, I&O, 24H, Fishbone Vital Signs/I&O Vital Signs Date Time Temp Pulse Resp B/P (MAP) Pulse Ox O2 Delivery O2 Flow Rate FiO2 02/19/19 07:46 97.2 68 16 147/72 (97) 98 02/18/19 01:15 Room Air I&O- Last 24 Hours up to 6 AM 02/19/19 06:00 Intake Total 1775 ml Output Total 3300 ml Balance -1525 ml Laboratory Data 24H LABS Laboratory Tests 2 02/18/19 18:36: Troponin I 4.71#*H 02/19/19 05:03: Troponin I 4.77*H, Nucleated Red Blood Cells % (auto) 0.0, Anion Gap 4L, Glomerular Filtration Rate > 60.0, Blood Urea Nitrogen 9, Creatinine 0.58, Sodium Level 143, Potassium Level 3.7, Chloride Level 111H, Carbon Dioxide Level 28, Calcium Level 8.1L CBC/BMP Laboratory Tests 02/19/19 05:03 Red Blood Count 2.74 L, Mean Corpuscular Volume 96.0, Mean Corpuscular Hemoglobin 31.4, Mean Corpuscular Hemoglobin Concent 32.7, Red Cell Distribution Width 13.1, Calcium Level 8.1 L Microbiology Microbiology 02/17/19 Blood Culture - Preliminary, Resulted No growth after 24 hours . All specim... LUIGI ABDALLA MD Feb 19, 2019 09:45
[2019-02-19] MEDS: ASPIRIN 81 MG ENTERIC TAB PO SCH (10:32)
[2019-02-19 10:33] VITALS: BP 147/72
[2019-02-19] MEDS: PANTOPRAZOLE 40MG TAB (PROTONIX) PO SCH (10:33)
[2019-02-19] MEDS: METOPROLOL TART 12.5 MG PER 1/2 TAB PO SCH (10:33)
[2019-02-19] MEDS: PRASUGREL 10 MG PO SCH (10:34)
--- NOTE | 2019-02-19 11:56 | CR ---
DATE OF CONSULTATION: 02/18/2019 REASON FOR CONSULTATION: Strokes. HISTORY OF PRESENT ILLNESS: Shari Gallego is a 73-year-old woman who was at baseline state of health until yesterday morning when she was leaving her house with her who had an appointment for echocardiogram. Her was driving and she was sitting on the passenger side around 10:00 a.m.. She started having difficulty seeing out of her right eye. In the beginning, things were moving in strange fashion and then her right-sided visual field became dark. When they reached for appointment of her 's echocardiogram, she started having trouble articulating, understanding and appeared confused. There was no numbness, weakness of her arms and legs or imbalance. Today she felt slight imbalance while walking in the hallway. She was brought to [facility] around 1:30 in the afternoon. I was called about this patient around 11:[address] scan of her head was unremarkable in the emergency department. MRI scan of brain was reviewed and showed acute multiple small ischemic strokes in the right frontal, occipital, bilateral cerebellum, left basal ganglia and left frontal lobes. Her ESR was 43 and CRP was 1.4. 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 She just came back from transesophageal echocardiogram which showed two or three atheromas in thoracic aorta. The patient states that when she had six stents placed in December 2018 two days after when she was home she had severe headache followed by visual disturbances on right side which improved after her headache improved. She denies any neck or back pain, dysphagia, dysarthria, diplopia, urinary incontinence, falls or loss of consciousness. PAST MEDICAL HISTORY: Coronary artery disease status post six stents. Dyslipidemia. Hypertension. Acid reflux. CURRENT MEDICATIONS: - aspirin 81 mg by mouth daily - Effient 10 mg by mouth daily - Lipitor 40 mg by mouth daily - lisinopril 10 mg by mouth daily - metoprolol 12.5 mg by mouth twice daily - Protonix 40 mg by mouth daily - Tylenol 500 mg by mouth every 6 hours as needed - nitroglycerin 0.4 mg times three every five minutes for chest pain ALLERGIES: PENICILLIN. SOCIAL HISTORY: She is a former smoker and quit many years ago. FAMILY HISTORY: Father had heart disease and Alzheimer's dementia. Mother had heart disease. Mother also had history of coronary artery disease and stroke. REVIEW OF SYSTEMS: All systems were reviewed and found to be noncontributory except as mentioned history of present illness. PHYSICAL EXAMINATION: Blood pressure 136/64, 99% saturation on room air, pulse 85, respiratory rate 16. Heart: Regular rate and rhythm. Lungs: Clear to auscultation. Abdomen: Soft, nontender, nondistended. No pedal edema. No musculoskeletal abnormalities. No rash. No signs of meningeal irritation. No tremor or dysmetria. The patient is awake, alert, oriented to place, person and time. Normal speech, comprehension and repetition. Extraocular muscles are intact. No facial weakness. Tongue and uvula are midline. No nystagmus. Visual barcenas are full to confrontation today. 5/5 strength in upper extremities. Deep tendon flexes 2+ throughout. Normal sensation. Gait is minimally unsteady although she is able to walk on her own. ASSESSMENT: 1. Small multiple ischemic strokes affecting bilateral cerebellum, bilateral frontal lobe, right occipital lobe and left basal ganglia. They are highly likely embolic from a cardiac source or atheromas in thoracic aorta. 2. Coronary artery disease with recent multiple stents. 3. 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 PLAN: 1. Continue telemetry monitoring and await results of her coagulopathy and vasculopathy blood tests. 2. Continue aspirin 81 mg by mouth daily and Effient 10 mg by mouth daily. 3. There is no clear treatment for thoracic aortic atheromas. No study has one superiority of anticoagulation over maximum antiplatelet therapy. The patient had multiple strokes while taking both aspirin and Effient. We should discuss with cardiology and see if they would recommend changing her from aspirin and Effient to Effient with anticoagulant such as Xarelto or Eliquis. 4. Increase Lipitor to 80 mg by mouth daily. 5. Physical and occupational therapy. 6. Follow with our office in 3-4 weeks after hospital discharge.
[2019-02-19] MEDS ORDERED: ATOR1TAB21 PO (13:15)
--- NOTE | 2019-02-19 13:18 | DS.PDOC ---
Discharge Summary General Date of Admission February 17, 2019 at 22:40 Date of Discharge 02/19/2019 Attending Physician: LUIGI ABDALLA MD Discharge Summary PROCEDURES PERFORMED DURING STAY: None. ADMITTING DIAGNOSES: 1. TIA versus CVA, CAD. DISCHARGE DIAGNOSES: 1. Multiple ischemic thromboembolic stroke, coronary artery disease. COMPLICATIONS/CHIEF COMPLAINT: Embolic Cerebral Infarction. HISTORY OF PRESENT ILLNESS: Ms. Gallego is a 73-year-old female who presents to [facility]'s Emergency Department with visual disturbance. Patient is accompanied by her and daughter. Patient states that she had been driving as a passenger in the vehicle with her this morning at 10AM to attend his cardiology appointment when she developed difficulties seeing out her right eye. She states that she was having some abnormal visual movements in her right sided peripheral vision and then completely lost vision in her right eye. She also developed difficulty understanding what people were saying to her and difficulty in articulating herself. Patient states that she does have a history of visual disturbance which is usually accompanied by an intense migraine headache; however, this visual disturbance was not accompanied by a headache. Family state that they did not notice facial asymmetry and her daughter had her extend her arms out in front of her and did not notice any abnormalities. The patient herself does not describe any lateralizing weakness and has not fallen. She does, however, describe feeling hopeless. Her daughter checked her blood pressure when she got home and it was initially 118/60s with it decreasing to 105/56. By noon, patient states that her visual loss had completely resolved. She reports having a sore throat overnight and having previously had a cough. She describes diffuse body aches, but attributes that to being on the ED stretcher for many hours today. Further admits to elbow pain, but no other joint pain. No fevers, night sweats, or chills. No chest pain or shortness of breath. Of note, patient experienced an acute inferiolateral STEMI on 01/18/2019. She was evaluated at [facility]. She received 2 drug-eluting stents in the right coronary artery, 2 drug-eluting stents in the left circumflex artery, and stenting of the left main artery. 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 Patient was started on ASA, Atorvastatin, Prasugrel, Lisinopril, Metoprolol, Nitroglycerin, and Pantoprazole. Patient presented to [facility] ED on 01/21/2019 for right sided headache with a "fluttering" in her right eye. A head CT was ordered and did not reveal any abnormalities. It was recommended that patient follow up with her primary care provider. Patient had a follow up appointment on 01/25/2019 with her wrist closer in [place]. A follow cardiac catheterization was scheduled for a week following her appointment, but was cancelled. It was rescheduled and she underwent a cardiac catheterization on 02/15/2019 via her right femoral vein. No abnormalities noted, per patient. However, she developed crushing chest pain and another cardiac catheterization was performed via her left femoral vein. Five additional stents were placed at that time. Patient established with her primary care provider, Dr. Yung Whelan, on 02/07/2019. In that encounter note it states that patient had presented to the [facility] the week before for a productive cough and was prescribed Cefdinir for bronchitis. Follow up appointment scheduled for 02/28/2019. Emergency Department evaluation obtained imaging, including a head CT which was unremarkable, carotid MRI and brain MRA which were unremarkable; however, the brain MRI revealed several acute infarctions, the largest is in the right cerebellar hemisphere measuring 13 mm. There are small acute left cerebellar infarct measuring 5 and 3 mm. There is a 4 mm right occipital infarct. There is a 5 mm left basal ganglia infarct. There is a 4 mm left frontal white matter infarct and a 3 mm right frontal infarct. Laboratory evaluation revealed the following: K 3.3, lactic acid 1.4, and a troponin 5.36. . HOSPITAL COURSE: Patient was admitted with the diagnosis of TIA versus CVA. Initially the CAT scan was negative, but the MRI was done which showed multiple ischemic infarcts in all different regions of present. Patient was continued on dual antiplatelet therapy with aspirin and Effient. Patient remained asymptomatic Rheems. Slowly her symptoms resolved. She had no more dysarthria, expressive aphasia, or numbness of left side of her face. Patient did also had an episode of chest pain, but the workup remained negative. Her troponin slowly and progressively started trending downwards. An EKG did not show any new changes. I spoke with Dr. Sotelo patient has a high risk for bleeding, hence is not a good candidate for normal anticoagulant such as Xarelto and will and will continue dual antiplatelet therapy on discharge. Also, neurology consult was barry mckeon and Dr. Vee also recommended dual antiplatelet therapy in the meantime and follow up patient in 2-3 weeks. Patient's Lipitor will be increased to 80 mg by mouth daily and she'll be advised to follow with her wrist closer as soon as possible and Dr. Vee from neurology in 2-3 weeks and continue all her current medications except Lipitor which the dose has been increased . DISCHARGE MEDICATIONS: Please see below. ALLERGIES: Please see below. PHYSICAL EXAMINATION ON DISCHARGE: VITAL SIGNS: Please see below. GENERAL: Within normal limits HEENT: PERRLA. Extraocular muscles intact NECK: Supple, no JVD, no lymphadenopathy CARDIOVASCULAR EXAMINATION: S1, S2, regular RESPIRATORY EXAMINATION: Clear to A&P ABDOMINAL EXAMINATION: Benign EXTREMITIES: No clubbing, cyanosis, edema SKIN: Within normal limits NEUROLOGICAL EXAMINATION: . No focal motor or sensory deficit. No cranial nerve deficit PSYCHIATRIC EXAMINATION: Within normal limits LABORATORY DATA: Please see below. IMAGING: As per EMR PROGNOSIS: Good ACTIVITY: As tolerated. DIET: DASH diet DISCHARGE PLAN: Discharge home. Follow with wrist closer as soon as possible and neurologist in 2-3 weeks DISPOSITION: . Home DISCHARGE INSTRUCTIONS: 1. As above. ITEMS TO FOLLOWUP ON ON OUTPATIENT: 1. As above. DISCHARGE CONDITION: Stable. TIME SPENT ON DISCHARGE: 48 minutes. Vital Signs/I&Os Vital Signs Date Time Temp Pulse Resp B/P (MAP) Pulse Ox O2 Delivery O2 Flow Rate FiO2 02/19/19 10:33 68 147/72 02/19/19 07:46 97.2 16 98 02/18/19 01:15 Room Air l I&O- Last 24 Hours up to 6 AM 02/19/19 06:00 Intake Total 1775 ml Output Total 3300 ml Balance -1525 ml Laboratory Data Labs 24H Laboratory Tests 2 02/18/19 18:36: Troponin I 4.71#*H 02/19/19 05:03: Troponin I 4.77*H, Nucleated Red Blood Cells % (auto) 0.0, Anion Gap 4L, Glomerular Filtration Rate > 60.0, Blood Urea Nitrogen 9, Creatinine 0.58, Sodium Level 143, Potassium Level 3.7, Chloride Level 111H, Carbon Dioxide Level 28, Calcium Level 8.1L 02/19/19 12:44: CBC/BMP Laboratory Tests 02/19/19 05:03 Red Blood Count 2.74 L, Mean Corpuscular Volume 96.0, Mean Corpuscular Hemoglobin 31.4, Mean Corpuscular Hemoglobin Concent 32.7, Red Cell Distribution Width 13.1, Calcium Level 8.1 L Microbiology Microbiology 02/17/19 Blood Culture - Preliminary, Resulted No growth after 24 hours . All specim... Discharge Medications Scheduled Aspirin (Aspir 81) 81 Mg Tablet.dr, 81 MG PO DAILY, (Reported) Atorvastatin Calcium (Atorvastatin Calcium) 20 Mg Tablet, 80 MG PO QHS Lisinopril (Lisinopril) 10 Mg Tablet, 10 MG PO DAILY, (Reported) Metoprolol Tartrate (Metoprolol Tartrate) 25 Mg Tablet, 12.5 MG PO BID, (Reported) Pantoprazole Sodium (Pantoprazole Sodium) 40 Mg Tablet.dr, 40 MG PO DAILY, (Reported) Prasugrel HCl (Effient) 10 Mg Tablet, 10 MG PO DAILY, (Reported) Scheduled PRN Acetaminophen (Acetaminophen) 500 Mg Tablet, 1,000 MG PO Q6H PRN for PAIN, (Reported) Nitroglycerin (Nitroglycerin) 0.4 Mg Tab.subl, 0.4 MG SL Q5MP PRN for CHEST PA IN, (Reported) Soy Isofla/Blk Cohosh/Mag Bark (Estroven 155 mg Capsule) 155 Mg Capsule, 1 CAP PO DAILY PRN for MOOD, (Reported) Allergies Coded Allergies: Penicillins (Verified Allergy, Unknown, 02/17/19) LUIGI ABDALLA MD Feb 19, 2019 13:18
[2019-02-19 13:28] LABS: MB/CK RELATIVE INDEX 3.82 (< OR =4); TROPONIN I 4.68 NG/ML (< 0.10)
[2019-02-19] MEDS ORDERED: ATORVASTATIN 20 MG TAB PO SCH (21:00)
--- NOTE | 2019-02-20 13:09 | ECGEPIP ---
[facility] Test Date: 2019-02-18 Pat Name: DANNY OWENS Department: Room: [place] [address] Gender: Female Nursing Program Coordinator: : 1945 Requested By: GUTIERREZ CALIX Order Number: [id number] Reading MD: Garret Garcia Measurements Intervals [place] Rate: 69 P: 49 VT: 186 QRS: 6 QRSD: 89 T: 60 QT: 430 QTc: 462 Interpretive Statements SINUS RHYTHM INFERIOR INFARCT, RECENT ST DEPRESSIONS IN I,aVL AND V4-V6 - CONSIDER LVH/ISCHEMIA COMPARED TO 02/17/19 THERE HAS BEEN MINIMAL CHANGE Electronically Signed on 02-20-2019 13:08:57 EDT by Garret Garcia
== END 2019-02-19 14:11 | disposition home or self-care (01) | DRG 66 ==
LOC: M ED 13:14 → M ED INP 22:40 → M MSPAV 02-18 01:25
PROVIDERS: ADMIT Internal Medicine; ATTEND Internal Medicine
PROC: B246ZZ4 Ultrasonography of Right and Left Heart, Transesophageal (ICD-10-PCS; principal; 2019-02-18 14:30)
DX: I63.40 Cerebral infarction due to embolism of unspecified cerebral artery (principal); I25.2 Old myocardial infarction; Z95.2 Presence of prosthetic heart valve; Z79.82 Long term (current) use of aspirin; Z79.899 Other long term (current) drug therapy; Z88.0 Allergy status to penicillin; I10 Essential (primary) hypertension; I25.10 Atherosclerotic heart disease of native coronary artery without angina pectoris; E87.6 Hypokalemia; D69.6 Thrombocytopenia, unspecified; D64.9 Anemia, unspecified; E78.5 Hyperlipidemia, unspecified; K21.9 Gastro-esophageal reflux disease without esophagitis

== ENCOUNTER 2019-03-14 10:06 | Outpatient (RCR) | payer MEDICARE, OTHER ==
[~2019-03-14 10:06] MED LIST: ACET-683 PO; ASPI81TA85 PO; ATOR1TAB21 PO; ATOR40TA75 PO; EFFI10TA4 PO; ESTR1CAP2 PO; LISI10TA4 PO; METO25TA4 PO; NITR0.4S14 SL; PANT40TA3 PO; PREM0.45 PO
--- NOTE | 2019-03-14 15:13 | CARECAPL ---
Assessment Account #s: Initial Assessment General Diagnoses: Stent, STEMI Date of event: Jan 18, 2019 Physician: Jacques Venegas Allergies: Coded Allergies: Penicillins (Verified Allergy, Unknown, 02/17/19) Date Entered Program: Mar 14, 2019 Risk strat for cardiac event: Low Exercise Date: Mar 14, 2019 Assessment: Initial Assessment Exercise Prescription Plan TO BUILD ENDURANCE THROUGH MONITORED EXERCISE Modalities initiated: Treadmill (WILL ADD), Cardio-Strider (WILL ADD), Nustep (WILL ADD), Arm Aerometer (WILL ADD), Dumbells (WILL ADD), Recumbent Bike (WILL ADD) Frequency: 3 Duration (Minutes) 30-60 minutes total exercise a day. 12-15 work intervals in minutes. 5 MIN rest intervals in minutes. Functional Capacity Goal Sustained Metabolic Equivalent of a task (MET) goal of 2.5-3.5 for 15-20 minutes. Intensity: 3-Moderate Progression (METS) Increase by: 0.5 METS every: 3-5 sessions TOLERATED Angina with ex: No Target Heart Rate REST +35-40 BASED ON BETA NICHOLAS THERAPY Resistance Training: Yes Weight (pounds): 1 Reps: 8-12 Hypertension: Yes Hypertension controlled with: Medication Resting 178/84 Medications Scheduled Aspirin (Aspir 81), 81 MG PO DAILY, (Reported) Atorvastatin Calcium (Atorvastatin Calcium), 80 MG PO QHS Lisinopril (Lisinopril), 10 MG PO DAILY, (Reported) Metoprolol Tartrate (Metoprolol Tartrate), 12.5 MG PO BID, (Reported) Pantoprazole Sodium (Pantoprazole Sodium), 40 MG PO DAILY, (Reported) Prasugrel HCl (Effient), 10 MG PO DAILY, (Reported) Scheduled PRN Acetaminophen (Acetaminophen), 1,000 MG PO Q6H PRN for PAIN, (Reported) Nitroglycerin (Nitroglycerin), 0.4 MG SL Q5MP PRN for CHEST PAIN, (Reported) Soy Isofla/Blk Cohosh/Mag Bark (Estroven 155 mg Capsule), 1 CAP PO DAILY PRN for MOOD, (Reported) Med Change: No Intervention Resistance Training: Yes Education: Self pulse, Ex safety, S/S to report, Low NA diet, BP medication, RPE Scale, Equipment orientation, warm up/cool down, Understand BP, Physical Active Target Goals Individual exercise Rx (1) BP 140/90 or 130/80 if DM or CKD (1) Aerobic active 30+min 5 days per week (1) Nutrition Date: Mar 14, 2019 Assessment: Initial Assessment Lipids Total Cholesterol (221), High Density Lipids (HDL) (60), Low Density Lipids (LDL) (144), Triglycerides (83), Lipid med/supplement (ATORVASTATIN) Lipid- med/supplement ATORVASTATIN 80 MG DAILY Med Change: No Diabetes Diabetes: No Monitor Blood Sugar at home: No Medication Change: No Weight Management Weight (lbs): 138.4 Height (inches): 65 Waist Circumference (Inches): 36 BMI: 23 Special Diet: low salt, low-fat Alcohol: none Alcohol Amount: 0 Diet Access Tool: Rate your plate Score: 36 Current Weight (pounds): 138.4 Intervention Asic Engineer Consult: No Nurse/patient discussion: Yes Dietary Goals TO MAKE HEART HEALTHY CHOICES Diet Class: Yes (WILL MEET WITH SCIENTIFIC ARTIST DURING PROGRAM) Referral to Diabetes education: No Referral to lipid clinic: No Referral to weight mangement p: No Education Eating Healthy Target goal LDL-C<100 if triglycerides are >200 Non-HDL-C should be <130 (1) LDL-C<70 for high risk patients (4) HbA1c<7% (1) BMI<25 Waist cir<40in M/<35in F (1) Education Date: Mar 14, 2019 Assessment: Initial Assessment Learning Barriers: ready Knowledge Test Score: 8 Family Support: Yes Tobacco use: No Quit: >6 months (QUIT 50 YEARS AGO) Tobacco Use Smokeless tobacco: No Intervention Referral to smoking cessation: No Individual education and couns: No Tobacco Adjunct: No Education class schedule given: No Attended education classes: No Education: tobacco triggers, CAD, Risk factors, med compliance, cardiac A&P, Angina S/S, Sexuality Target Goals Complete cessation of tobacco use (1). Psychosocial Date: Mar 14, 2019 Assessment: Initial Assessment Psych Test (Initial/Discharge) Tool Used: CESD Score: 0 Intervention Physician Consult: No Physician Referral: No Med Change: No Stress Management Class: No Uses Stress Management Skills: Yes Education Education: Coping Techniques, S/S depression, Relaxation Techniques Target Goal Assess presence or absence of depression using a valid screening tool (1). Maximize coping skills (2). Positive support system (2). Patient/Program Goal Preventative Medication: Yes Beta blockade, Yes Statin/OTR lipid Lowering Fall Risk Assess: Yes (NOT A FALL RISK) Provider Assessment Session Number: 1 Provider Assessment: Proceed with rehab Jaime Bland RN Mar 14, 2019 15:13
== END 2019-03-20 ==
LOC: M CR 10:06
PROVIDERS: ATTEND Internal Medicine Cardiovascular Disease
DX: I22.8 Subsequent ST elevation (STEMI) myocardial infarction of other sites (principal); Z98.61 Coronary angioplasty status

== ENCOUNTER → 2019-04-20 | Outpatient (RCR) | payer MEDICARE, OTHER | LOC: M CR 03-23 10:35 | PROVIDERS: ATTEND Internal Medicine Cardiovascular Disease | DX: I22.8 Subsequent ST elevation (STEMI) myocardial infarction of other sites (principal); Z98.61 Coronary angioplasty status ==

== ENCOUNTER 2019-05-19 11:09 | Outpatient (RCR) | payer MEDICARE, OTHER ==
--- NOTE | 2019-04-27 15:17 | CARECAPL ---
Assessment Account #s: Re-Assessment II General Diagnoses: Stent, STEMI Date of event: Jan 18, 2019 Physician: Jacques Venegas Allergies: Coded Allergies: Penicillins (Verified Allergy, Unknown, 02/17/19) Date Entered Program: Mar 14, 2019 Risk strat for cardiac event: Low Exercise Date: Apr 27, 2019 Assessment: Re-Assessment II Exercise Prescription Plan TO EDUCATE AND BUILD ENDURANCE THROUGH MONITORED EXERCISE Modalities initiated: Treadmill (METS=3.60/RPE=3), Nustep (METS=5.6/RPE=3), Arm Aerometer (METS=3.2/RPE=3.5), Dumbells (4#/RPE=3), Recumbent Bike (METS=6.1/RPE=3) Frequency: 3 Duration (Minutes) 30-60 minutes total exercise a day. 12-15 work intervals in minutes. 5 MIN PRN rest intervals in minutes. Functional Capacity Goal Sustained Metabolic Equivalent of a task (MET) goal of 4.5-5.5 for 15-20 minutes. Intensity: 3-Moderate Progression (METS) Increase by: 0.5 METS every: 5 sessions TOLERATED Angina with ex: No Target Heart Rate +35-40 BASED ON BETA NICHOLAS THERAPY Resistance Training: Yes Weight (pounds): 4 Reps: 12-15 Hypertension: Yes Hypertension controlled with: Medication Resting 136/80 Peak Exercise BP 130/80 Medications Scheduled Aspirin (Aspir 81), 81 MG PO DAILY, (Reported) Atorvastatin Calcium (Atorvastatin Calcium), 80 MG PO QHS Lisinopril (Lisinopril), 10 MG PO DAILY, (Reported) Metoprolol Tartrate (Metoprolol Tartrate), 12.5 MG PO BID, (Reported) Pantoprazole Sodium (Pantoprazole Sodium), 40 MG PO DAILY, (Reported) Prasugrel HCl (Effient), 10 MG PO DAILY, (Reported) Scheduled PRN Acetaminophen (Acetaminophen), 1,000 MG PO Q6H PRN for PAIN, (Reported) Nitroglycerin (Nitroglycerin), 0.4 MG SL Q5MP PRN for CHEST PAIN, (Reported) Soy Isofla/Blk Cohosh/Mag Bark (Estroven 155 mg Capsule), 1 CAP PO DAILY PRN for MOOD, (Reported) Current BP 120/74 Med Change: No Intervention Resistance Training: Yes Education: Self pulse (LOCATION OF PULSE AND HOW TO MEASURE HEART RATE), Ex safety (HYDRATE,DO NOT USE CELL PHONE), S/S to report (CHEST PAIN/SOB), Low NA diet (WILL SEE WINE SALES REPRESENTATIVE WHILE IN PROGRAM), BP medication (REVIEWED METOPROLOL,LISINOPRIL), RPE Scale (EXPLAIN DIFFICULTY OF EACH PIECE OF EQUIPMENT ON 1-5 SCALE), Equipment orientation (ORIENT TO EACH PIECE OF EQUIPMENT), warm up/cool down (EDUCATED ON IMPORTANCE OF WARM UP/COOL DOWN WITH EXERCISE), Understand BP (REVIEWED B/P PARAMETERS WITH EXERCISE), Physical Active (EDUCATED ON IMPORTANCE OF CONTINUED EXERCISE PROGRAM AFTER FINISHING CARDIAC REHAB PROGRAM) Target Goals Individual exercise Rx (1) BP 140/90 or 130/80 if DM or CKD (1) Aerobic active 30+min 5 days per week (1) Nutrition Date: Apr 27, 2019 Assessment: Re-Assessment II Lipid- med/supplement ATORVASTATIN Med Change: No Diabetes Diabetes: No Monitor Blood Sugar at home: No Medication Change: No Weight Management Weight (lbs): 139 Special Diet: low salt Alcohol: none Current Weight (pounds): 139 Intervention Track Broom Operator Consult: No Nurse/patient discussion: Yes Dietary Goals TO MAKE HEART HEALTHY CHOICES AND PORTION CONTROL Diet Class: Yes (WILL SEE WINE SALES REPRESENTATIVE WHILE IN PROGRAM) Referral to Diabetes education: No Referral to lipid clinic: No Referral to weight mangement p: No Education Eating Healthy Target goal LDL-C<100 if triglycerides are >200 Non-HDL-C should be <130 (1) LDL-C<70 for high risk patients (4) HbA1c<7% (1) BMI<25 Waist cir<40in M/<35in F (1) Education Date: Apr 27, 2019 Assessment: Re-Assessment II Learning Barriers: ready Family Support: Yes Tobacco use: No Quit: >6 months (QUIT 50 YEARS AGO) Tobacco Use Smokeless tobacco: No Intervention Referral to smoking cessation: No Individual education and couns: No Tobacco Adjunct: No Education class schedule given: No Attended education classes: No Education: Risk factors (DISCUSSED CHOLESTEROL,SALT IN DIET, USING METS CHINYERE SUREMENT OF EXERCISE), med compliance (DISCUSSED IMPORTANCE OF MEDICATION COMPLIANCE), Angina S/S (REVIEWED S/S OF ME SUCH CHEST PAIN,SOB, TAKING NITROGLYCERIN ORDERED, CALLING [phone]) Target Goals Complete cessation of tobacco use (1). Psychosocial Date: Apr 27, 2019 Assessment: Re-Assessment II Intervention Physician Consult: No Physician Referral: No Med Change: No Stress Management Class: No Uses Stress Management Skills: Yes Education Education: Coping Techniques, S/S depression, Relaxation Techniques Target Goal Assess presence or absence of depression using a valid screening tool (1). Maximize coping skills (2). Positive support system (2). Patient/Program Goal Preventative Medication: Yes Beta blockade, Yes Statin/OTR lipid Lowering Fall Risk Assess: Yes (NOT A FALL RISK) Provider Assessment Session Number: 11 Provider Assessment: Proceed with rehab Jaime Bland RN Apr 27, 2019 15:17
--- NOTE | 2019-05-20 17:40 | CARECAPL ---
Assessment Account #s: Re-Assessment II (REASSESSMENT III) General Diagnoses: Stent, STEMI Date of event: Jan 18, 2019 Physician: Jacques Venegas Allergies: Coded Allergies: Penicillins (Verified Allergy, Unknown, 02/17/19) Date Entered Program: Mar 14, 2019 Risk strat for cardiac event: Low Exercise Date: May 20, 2019 Assessment: Re-Assessment II (REASSESSMENT III) Exercise Prescription Plan TO EDUCATE AND BUILD ENDURANCE THROUGH MONITORED EXERCISE Modalities initiated: Treadmill (METS=3.95/RPE=3), Nustep (METS=6.5/RPE=3), Arm Aerometer (METS=3.9/RPE=3), Dumbells (5#/RPE3), Recumbent Bike (METS=4.3/RPE=5) Frequency: 2 Duration (Minutes) 30 - 60 minutes total exercise a day. 15 - 20 work intervals in minutes. PRN rest intervals in minutes. Functional Capacity Goal Sustained Metabolic Equivalent of a task (MET) goal of 4.5-5.5 for 15-20 minutes. Intensity: 3-Moderate Progression (METS) Increase by: 0.5 METS every: 5 sessions TOLERATED Angina with ex: No Target Heart Rate +35-40 BASED ON BETA NICHOLAS THERAPY Resistance Training: Yes Weight (pounds): 5 Reps: 12-15 Hypertension: Yes Hypertension controlled with: Medication Resting 118/80 Peak Exercise BP 180/96 Medications Scheduled Aspirin (Aspir 81), 81 MG PO DAILY, (Reported) Atorvastatin Calcium (Atorvastatin Calcium), 80 MG PO QHS Lisinopril (Lisinopril), 10 MG PO DAILY, (Reported) Metoprolol Tartrate (Metoprolol Tartrate), 12.5 MG PO BID, (Reported) Pantoprazole Sodium (Pantoprazole Sodium), 40 MG PO DAILY, (Reported) Prasugrel HCl (Effient), 10 MG PO DAILY, (Reported) Scheduled PRN Acetaminophen (Acetaminophen), 1,000 MG PO Q6H PRN for PAIN, (Reported) Nitroglycerin (Nitroglycerin), 0.4 MG SL Q5MP PRN for CHEST PAIN, (Reported) Soy Isofla/Blk Cohosh/Mag Bark (Estroven 155 mg Capsule), 1 CAP PO DAILY PRN for MOOD, (Reported) Current BP 138/82 Med Change: No Intervention Home exercise: Type (WALKING, JOIN LOCAL GYM), Frequency (3-5 TIMES PER WEEK), Duration (30-60 MINUTES) Resistance Training: Yes Education: Self pulse (LOCATION OF PULSE AND HOW TO MEASURE HEART RATE/DEMONSTRATES ACCURATELY), Ex safety (HYDRATE/NO USE OF CELL PHONE/VERBALIZES UNDERSTANDING), S/S to report (CHEST PAIN/SOB/VERBALIZES UNDERSTANDING), Low NA diet (ENCOURAGED MAINTAINING LOW NA DIET, NOT ADDING SALT TO FOOD), BP medication (REVIEWED METOPROLOL AND LISINOPRIL/VERBALIZES UNDERSTANDING), RPE Scale (DEMONSTRATES USE OF EFFORT SCALE INDEPENDENTLY), Equipment orientation (USES EQUIPMENT INDEPENDENTLY ONCE DEMONSTRATION IS GIVEN ON USE), warm up/cool down (DEMONSTRATES INDEPENDENTLY PRIOR TO AND FOLLOWING EXERCISE), Understand BP (REVIEWED B/P PARAMETERS FOR EXERCISE AND BASELINE/ PATIENT VERBALIZES UNDERSTANDING), Physical Active (EDUCATED ON IMPORTANCE OF CONTINUED EXERCISE FOLLOWING CARDIAC REHAB PROGRAM/PATIENT VERBALIZES UNDERSTAND ING) Education Goals Met: Yes (PROGRESSING TOWARD GOALS/EXCELLENT EFFORT) Target Goals Individual exercise Rx (1) BP 140/90 or 130/80 if DM or CKD (1) Aerobic active 30+min 5 days per week (1) Nutrition Date: May 20, 2019 Assessment: Re-Assessment II (REASSESSMENT III) Lipid- med/supplement ATORVASTATIN Med Change: No Monitor Blood Sugar at home: No Medication Change: No Weight Management Weight (lbs): 139 Special Diet: low salt Alcohol: none Current Weight (pounds): 139 Intervention Health Science Instructor Consult: No Nurse/patient discussion: Yes Dietary Goals TO MAKE HEART HEALTHY CHOICES Diet Class: Yes (WILL SEE TANK BUILDER WHILE IN PROGRAM) Referral to Diabetes education: No Referral to lipid clinic: No Referral to weight mangement p: No Education Eating Healthy (REVIEWED IMPORTANCE OF LOW SALT DIET/PATIENT VERBALIZES UNDERSTANDING) Education Goals Met: Yes (PROGRESSING TOWARD GOALS/EXCELLENT EFFORT AND ATTENDENCE) Target goal LDL-C<100 if triglycerides are >200 Non-HDL-C should be <130 (1) LDL-C<70 for high risk patients (4) HbA1c<7% (1) BMI<25 Waist cir<40in M/<35in F (1) Education Date: May 20, 2019 Assessment: Re-Assessment II (REASSESSMENT III) Learning Barriers: ready Family Support: Yes Tobacco use: No Quit: >6 months (QUIT 50 YEARS AGO) Tobacco Use Smokeless tobacco: No Intervention Referral to smoking cessation: No Individual education and couns: No Tobacco Adjunct: No Education class schedule given: No Attended education classes: No Education: CAD (REVIEWED CAD,IMPORTANCE OF FOLLOWUP AND LIFESTYLE MODIFICATION/VARBALIZES UNDERSTANDING), Risk factors (SMOKING,DIET,LACK OF EXERCISE/VERBALIZES UNDERSTANDING), med compliance (DISCUSSED IMPORTANCE OF TAKING MEDICATIONS ORDERED/VERBALIZES UNDERSTANDING), cardiac A&P (ANATOMY OF HEART HANDOUT/VERBALIZES UNDERSTANDING), Angina S/S (CHEST PAIN/SOB/NAUSEA AND VOMITING/VERBALIZES UNDERSTANDING), Sexuality (VERBALIZES UNDERSTANDING WHEN RELEASED BY MD) Education Goals Met: Yes (PROGRESSING TOWARD GOALS/EXCELLENT ATTENDENCE AND IS RECEPTIVE TO EDUCATION) Target Goals Complete cessation of tobacco use (1). Psychosocial Date: May 20, 2019 Assessment: Re-Assessment II (REASSESSMENT III) Intervention Physician Consult: No Physician Referral: No Med Change: No Stress Management Class: No Uses Stress Management Skills: Yes Education Education: Coping Techniques (TAKE TIME FOR SELF, SEEK INTERVENTION WHEN NEEDED/VERBALIZES UNDERSTANDING), S/S depression (LACK OF INTEREST, MOTIVATION, APPETITE/VERBALIZES UNDERSTANDING), Relaxation Techniques (READING, EXERCISING,LISTENING TO MUSIC,HOBBIES/PATIENT VERBALIZES UNDERSTANDING) Education Goals Met: Yes (PROGRESSING TOWARD GOALS/EXCELLENT ATTENDENCE/PATIENT IS RECEPTIVE TO EDUCATION) Target Goal Assess presence or absence of depression using a valid screening tool (1). Maximize coping skills (2). Positive support system (2). Patient/Program Goal Preventative Medication: Yes Beta blockade, Yes Statin/OTR lipid Lowering Fall Risk Assess: Yes (NOT A FALL RISK) Provider Assessment Session Number: 18 Provider Assessment: Proceed with rehab Jaime Bland RN May 20, 2019 17:40
== END 2019-05-21 ==
LOC: M CR 11:09
PROVIDERS: ATTEND Internal Medicine Cardiovascular Disease
DX: I22.8 Subsequent ST elevation (STEMI) myocardial infarction of other sites (principal); Z98.61 Coronary angioplasty status

== ENCOUNTER 2019-06-08 13:17 | Outpatient (RCR) | payer MEDICARE, OTHER ==
--- NOTE | 2019-06-09 10:31 | CARECAPL ---
Assessment Account #s: Discharge General Diagnoses: Stent, STEMI Date of event: Jan 18, 2019 Physician: Jacques Venegas Allergies: Coded Allergies: Penicillins (Verified Allergy, Unknown, 02/17/19) Date Entered Program: Mar 14, 2019 Risk strat for cardiac event: Low Exercise Date: Jun 09, 2019 Assessment: Followup/Discharge Stages of change: maintenance Exercise Prescription Plan TO EDUCATE AND BUILD STRENGTH AND ENDURANCE THROUGH MONITORED EXERCISE Modalities initiated: Treadmill (METS=4.54/RPE=3), Nustep (METS=6.0/RPE=3), Dumbells (5#/RPE=3), Recumbent Bike (METS=3.7/RPE=4) Frequency: 3 Duration (Minutes) 30 - 60 minutes total exercise a day. 15 - 20 work intervals in minutes. PRN rest intervals in minutes. Functional Capacity Goal Sustained Metabolic Equivalent of a task (MET) goal of 4.5-5.5 for 15-20 minutes. Intensity: 3-Moderate Progression (METS) Increase by: METS every: sessions Angina with ex: No Target Heart Rate +35-40 Resistance Training: Yes Weight (pounds): 5 Reps: 12-15 Hypertension: Yes Hypertension controlled with: Medication (LISINOPRIL,METOPROLOL) Resting 148/92 Peak Exercise BP 180/80 Medications Scheduled Aspirin (Aspir 81), 81 MG PO DAILY, (Reported) Atorvastatin Calcium (Atorvastatin Calcium), 80 MG PO QHS Lisinopril (Lisinopril), 10 MG PO DAILY, (Reported) Metoprolol Tartrate (Metoprolol Tartrate), 12.5 MG PO BID, (Reported) Pantoprazole Sodium (Pantoprazole Sodium), 40 MG PO DAILY, (Reported) Prasugrel HCl (Effient), 10 MG PO DAILY, (Reported) Scheduled PRN Acetaminophen (Acetaminophen), 1,000 MG PO Q6H PRN for PAIN, (Reported) Nitroglycerin (Nitroglycerin), 0.4 MG SL Q5MP PRN for CHEST PAIN, (Reported) Soy Isofla/Blk Cohosh/Mag Bark (Estroven 155 mg Capsule), 1 CAP PO DAILY PRN for MOOD, (Reported) Current BP 118/78 Med Change: No Intervention Home exercise: Type (WALKING,JOIN LOCAL GYM), Frequency (3-5 DAYS / WEEK), Duration (30-60 MIN) Resistance Training: Yes Education: Self pulse (EDUCATION DOCUMENTED ON PREVIOUS ITP) Education Goals Met: Yes Target Goals Individual exercise Rx (1) BP 140/90 or 130/80 if DM or CKD (1) Aerobic active 30+min 5 days per week (1) Nutrition Date: Jun 09, 2019 Assessment: Followup/Discharge Stages of change: maintenance Lipid- med/supplement ATORVASTATIN 80 MG DAILY Med Change: No Diabetes Diabetes: No Monitor Blood Sugar at home: No Medication Change: No Weight Management Weight (lbs): 137 Height (inches): 64 Waist Circumference (Inches): 31.5 BMI: 23.5 Special Diet: low salt Diet Access Tool: Rate your plate Score: 48 Current Weight (pounds): 137 Intervention Fusing Furnace Loader Consult: No Nurse/patient discussion: Yes Dietary Goals TO MAKE HEART HEALTHY CHOICES Diet Class: Yes (RUBBER ROLLER GRINDER OPERATOR WAS SEEN 05/05/2019) Referral to Diabetes education: No Referral to lipid clinic: No Referral to weight mangement p: No Education Eating Healthy Education Goals Met: Yes Target goal LDL-C<100 if triglycerides are >200 Non-HDL-C should be <130 (1) LDL-C<70 for high risk patients (4) HbA1c<7% (1) BMI<25 Waist cir<40in M/<35in F (1) Education Date: Jun 09, 2019 Assessment: Followup/Discharge Learning Barriers: ready Stages of change: maintenance Family Support: Yes Tobacco use: No Tobacco Use Smokeless tobacco: No Intervention Referral to smoking cessation: No Individual education and couns: No Tobacco Adjunct: No Education class schedule given: No Attended education classes: No Education: CAD, Risk factors, med compliance, cardiac A&P, Angina S/S, Sexua lity Education Goals Met: Yes Target Goals Complete cessation of tobacco use (1). Psychosocial Date: Jun 09, 2019 Assessment: Followup/Discharge Psych Test (Initial/Discharge) Tool Used: Other (PHQ-9) Score: 0 Stages of change: maintenance Intervention Physician Consult: No Physician Referral: No Med Change: No Stress Management Class: No Uses Stress Management Skills: Yes Education Education: Coping Techniques, S/S depression, Relaxation Techniques Education Goals Met: Yes Target Goal Assess presence or absence of depression using a valid screening tool (1). Maximize coping skills (2). Positive support system (2). Patient/Program Goal Preventative Medication: Yes Aspirin, Yes Beta blockade, Yes Statin/OTR lipid Lowering Fall Risk Assess: Yes (NOT A FALL RISK) Provider Assessment Session Number: 24 Provider Assessment: No changes Jaime Bland RN Jun 09, 2019 10:31
== END 2019-06-20 ==
LOC: M CR 13:17
PROVIDERS: ATTEND Internal Medicine Cardiovascular Disease
DX: I22.8 Subsequent ST elevation (STEMI) myocardial infarction of other sites (principal); Z98.61 Coronary angioplasty status

== ENCOUNTER → 2020-08-28 | Outpatient (CLI) | payer SELFPAY ==
[~2020-08-28] MED LIST changes: -ASPI81TA85 PO; +ASPI81TA86 PO; +PANT40TA29 PO; -PANT40TA3 PO
== END ==
LOC: M LABSMTC 12:26
PROVIDERS: ATTEND Pediatrics
DX: Z11.59 Encounter for screening for other viral diseases (principal)

== ENCOUNTER → 2021-08-09 | Outpatient (CLI) | payer MEDICARE, OTHER ==
[~2021-08-09] MED LIST changes: +ASCO500T PO; +ATOR80TA59 PO; +BAYE81TA10 PO; +CLOP75TA2 PO; -EFFI10TA4 PO; +EFFI10TA7 PO; +FAMO20TA5 PO; +FOLI1TAB11 PO; +FURO20TA2 PO; +LISI10TA22 PO; -LISI10TA4 PO; +MM S100C PO; +NORV5TAB PO; +POTA10CA32 PO; +THERTAB52 PO
== END ==
LOC: M LABSMTC 10:33
PROVIDERS: ATTEND Anesthesiology
DX: Z01.812 Encounter for preprocedural laboratory examination (principal); Z20.822 Contact with and (suspected) exposure to COVID-19

== ENCOUNTER → 2022-06-01 | Outpatient (CLI) | payer MEDICARE, OTHER ==
[~2022-06-01] MED LIST changes: +LOSA50TA28 PO
== END ==
LOC: M LABSMTC 10:51
PROVIDERS: ATTEND Anesthesiology
DX: Z01.818 Encounter for other preprocedural examination (principal); Z11.52 Encounter for screening for COVID-19

== ENCOUNTER → 2024-03-03 | Outpatient (REF) | payer MEDICARE, OTHER ==
[~2024-03-03] MED LIST changes: -POTA10CA32 PO; +POTA10CA70 PO
== END ==
LOC: M SFHCPLAZ 18:33
PROVIDERS: ATTEND Family Medicine
DX: Z86.73 Personal history of transient ischemic attack (TIA), and cerebral infarction without residual deficits (principal)

== ENCOUNTER → 2024-03-29 | Outpatient (CLI) | payer MEDICARE, OTHER ==
[~2024-03-29] MED LIST changes: +ISOVUE-370 76% 100ML VIAL As Ordered ONE
== END ==
LOC: M RAD 03-25 14:14
PROVIDERS: ATTEND Student in an Organized Health Care Education/Training Program
DX: Z86.73 Personal history of transient ischemic attack (TIA), and cerebral infarction without residual deficits (principal)
CPT/HCPCS: 70496; Q9967

== ENCOUNTER → 2024-06-03 | Outpatient (CLI) | payer MEDICARE, OTHER | LOC: M RAD 11:28 | PROVIDERS: ATTEND Student in an Organized Health Care Education/Training Program | DX: Z86.73 Personal history of transient ischemic attack (TIA), and cerebral infarction without residual deficits (principal) | CPT/HCPCS: 70498; Q9967 ==